=== PATIENT | male | born 2000 | race Caucasian/White ===

== ENCOUNTER 2022-09-08 01:36 | Inpatient (IN) | payer OTHER ==
[~2022-09-08] VITALS: Ht 190.5 cm; Wt 70.7 kg
[2022-09-08 04:07] LABS: HEMATOCRIT 41.8 % (42.0-52.0); HEMOGLOBIN 14.3 g/dl (13.5-17.5); MEAN CORPUSCULAR HEMOGLOBIN 29.1 pg (27.0-33.0); MEAN CORPUSCULAR HGB CONC 34.2 g/dl (32.0-36.5); PLATELET COUNT, AUTOMATED 230 10^3/uL (150-450); RED BLOOD COUNT 4.92 10^6/uL (4.30-6.10); WHITE BLOOD COUNT 5.9 10^3/uL (4.0-10.0)
[2022-09-08 04:23] LABS: ACETAMINOPHEN LEVEL < 2.0 UG/ML (10.0-20.0)
[2022-09-08 04:24] LABS: ETHYL ALCOHOL (ETHANOL) 0.139 % (0.000-0.010); SALICYLATE LEVEL < 3.0 MG/DL (<30)
[2022-09-08 04:27] LABS: THYROID STIMULATING HORMONE 1.122 uIU/ML (0.55-4.78)
[2022-09-08 04:33] LABS: ALBUMIN 4.2 G/DL (3.2-5.2); ALKALINE PHOSPHATASE 114 U/L (46-116); ALT/SGPT 30 U/L (7.0-40); AST/SGOT 26 U/L (<34); BILIRUBIN,DIRECT 0.1 MG/DL (<0.4); BILIRUBIN,TOTAL 0.3 MG/DL (0.3-1.2); BLOOD UREA NITROGEN 8 MG/DL (9-23); CALCIUM LEVEL 8.5 MG/DL (8.5-10.1); CARBON DIOXIDE LEVEL 26 MMOL/L (20-31); CHLORIDE LEVEL 108 MMOL/L (98-107); CREATININE FOR GFR 0.76 MG/DL (0.70-1.30); GLOMERULAR FILTRATION RATE > 60.0 (>60); GLUCOSE, FASTING 116 MG/DL (60-100); POTASSIUM SERUM 3.5 MMOL/L (3.5-5.1); SODIUM LEVEL 145 MMOL/L (136-145); TOTAL PROTEIN 6.7 G/DL (5.7-8.2)
[2022-09-08 05:17] LABS: AMPHETAMINES LEVEL URINE NEGATIVE (NEGATIVE); BARBITURATES URINE NEGATIVE (NEGATIVE); BENZODIAZEPINES URINE NEGATIVE (NEGATIVE); CANNABINOIDS URINE NEGATIVE (NEGATIVE); COCAINE METABOLITE URINE NEGATIVE (NEGATIVE); METHADONE URINE NEGATIVE (NEGATIVE); OPIATES URINE NEGATIVE (NEGATIVE); PHENCYCLIDINE URINE NEGATIVE (NEGATIVE)
[2022-09-08] MEDS ORDERED: IBUP-1720 PO (10:28)
[2022-09-08] MEDS ORDERED: HOME MED LIST COMPLETE! XX SCH (10:30)
[2022-09-09] MEDS: NICOTINE 21MG/24HR 1 EA TRANSDERMAL TD SCH (09:00)
[2022-09-09] MEDS ORDERED: IBUPROFEN 400MG TAB PO PRN (12:25)
[2022-09-09] MEDS ORDERED: MOM 30ML SUSPENSION UDC PO PRN (12:25)
[2022-09-09] MEDS ORDERED: MAALOX 30 ML SUSP *UDC PO PRN (12:25)
[2022-09-09] MEDS ORDERED: IBUPROFEN 600MG TAB PO PRN (12:25)
[2022-09-09] MEDS ORDERED: LORazepam 2 MG TAB PO PRN (12:25)
[2022-09-09] MEDS ORDERED: traZODone 50 MG TAB PO PRN (12:25)
[2022-09-09 15:33] VITALS: BP 141/93
[2022-09-09 16:12] VITALS: BP 141/93
[2022-09-09] MEDS: MULTIVITAMINS/MINERALS THERAP 1 TAB PO SCH (17:30)
[2022-09-09] MEDS: FOLIC ACID 1MG TAB PO SCH (17:30)
[2022-09-09] MEDS: THIAMINE 100 MG TAB PO SCH ×2 (17:30→21:25)
[2022-09-09 22:29] VITALS: BP 130/91
[2022-09-10 06:30] VITALS: BP 120/72
[2022-09-10] MEDS: NICOTINE 21MG/24HR 1 EA TRANSDERMAL TD SCH (10:07)
[2022-09-10] MEDS: THIAMINE 100 MG TAB PO SCH (10:09)
[2022-09-10] MEDS: MULTIVITAMINS/MINERALS THERAP 1 TAB PO SCH (10:09)
[2022-09-10] MEDS: FOLIC ACID 1MG TAB PO SCH (10:09)
[2022-09-10 14:42] VITALS: BP 141/77
[2022-09-10 15:14] VITALS: BP 141/77
[2022-09-11 06:44] VITALS: BP 112/71
[2022-09-11] MEDS: NICOTINE 21MG/24HR 1 EA TRANSDERMAL TD SCH (09:00)
[2022-09-11] MEDS ORDERED: NICO21PAT TD (09:20)
[2022-09-11] MEDS: FOLIC ACID 1MG TAB PO SCH (10:17)
[2022-09-11] MEDS: MULTIVITAMINS/MINERALS THERAP 1 TAB PO SCH (10:17)
== END 2022-09-11 10:40 | disposition home or self-care (01) | DRG 880 ==
LOC: M ED 01:36 → EDBD 01:36 → M ED INP 09-09 12:22 → M PSY 09-09 15:12
PROVIDERS: ADMIT Student in an Organized Health Care Education/Training Program; ATTEND Student in an Organized Health Care Education/Training Program
DX: F41.8 Other specified anxiety disorders (principal); R45.851 Suicidal ideations; Z20.822 Contact with and (suspected) exposure to COVID-19; F17.290 Nicotine dependence, other tobacco product, uncomplicated; F43.20 Adjustment disorder, unspecified; F10.10 Alcohol abuse, uncomplicated; Z91.82 Personal history of military deployment; Z56.2 Threat of job loss